=== PATIENT | female | born 1985 | race Two or more races ===

== ENCOUNTER 2018-03-03 20:24 | Emergency (ER) | payer OTHER ==
--- NOTE | 2018-03-03 20:36 | ED Physician Documentation ---
PD HPI ABD PAIN - Stated complaint Stated Complaint: ABD PX/BACK PX - Chief complaint Chief Complaint: Abd Pain - History obtained from History obtained from: Patient - History of Present Illness Timing - onset: Enter time (09:00), Yesterday Timing - details: Gradual onset Pain level now: 4 Quality: Pain Location: Epigastric, LUQ Radiation: Other (no radiation) Improved by: Other (nothing) Worsened by: Other (no exacerbating factors) Associated symptoms: Nausea. No: Fever, Vomiting, Diarrhea, Constipation Similar symptoms before: Has not had sx before Recently seen: Not recently seen Review of Systems Constitutional: reports: Reviewed and negative Cardiac: reports: Reviewed and negative Respiratory: reports: Reviewed and negative GI: reports: Abdominal Pain, Nausea. denies: Vomiting : denies: Dysuria, Frequency Musculoskeletal: reports: Reviewed and negative PD PAST MEDICAL HISTORY - Past Medical History Past Medical History: Yes - Past Surgical History Past Surgical History: Yes General: Cholecystectomy, Bowel surgery ([id number]) - Present Medications Home Medications: Ambulatory Orders Medication Instructions Recorded Confirmed Rizatriptan Benzoate [Maxalt] 10 mg PO DAILY PRN 03/03/18 03/03/18 traZODone [Desyrel] 50 mg PO ONCE 03/03/18 03/03/18 Hydrocodone/Acetaminophen 1 - 2 each PO Q6HR PRN #14 tablet 03/04/18 [Hydrocodon-Acetaminophen 5-325] Ondansetron Odt [Zofran] 4 mg TL Q6H PRN #10 tablet 03/04/18 - Allergies Allergies/Adverse Reactions: Allergies Allergy/AdvReac Type Severity Reaction Status Date / Time No Known Drug Allergies Allergy Verified 03/03/18 20:29 PD ED PE NORMAL - Vitals Vital signs reviewed: Yes - General General: Alert and oriented X 3, No acute distress, Well developed/nourished - HEENT HEENT: Moist mucous membranes - Cardiac Cardiac: RRR, No murmur - Respiratory Respiratory: No respiratory distress, Clear bilaterally - Abdomen Abdomen: Soft, Non distended, Other (mild tenderness epigastrium, LUQ) - Back Back: No CVA TTP - Extremities Extremities: No edema Results - Vitals Vitals: Oxygen O2 Source Room air - Labs Labs: Laboratory Tests 03/03/18 03/03/18 03/03/18 20:50 20:50 22:06 WBC 5.1 RBC 4.41 Hgb 12.0 Hct 36.3 L MCV 82.3 MCH 27.2 MCHC 33.1 RDW 13.4 Plt Count 211 MPV 8.3 Neut # (Auto) 2.0 Lymph # (Auto) 2.5 [place] # (Auto) 0.5 Eos # (Auto) 0.0 Baso # (Auto) 0.0 Absolute Nucleated RBC 0.01 Nucleated RBC % 0.1 Sodium 141 Potassium 3.6 Chloride 106 Carbon Dioxide 26 Anion Gap 9.0 BUN 11 Creatinine 0.8 Estimated GFR (MDRD) 84 L Glucose 85 Calcium 8.9 Total Bilirubin 0.6 AST 22 ALT 16 Alkaline Phosphatase 77 Total Protein 7.5 Albumin 4.2 Globulin 3.3 Albumin/Globulin Ratio 1.3 Lipase 21 L Urine Color YELLOW Urine Clarity CLEAR Urine pH 6.0 Ur Specific [place] 1.020 Urine Protein NEGATIVE Urine Glucose (UA) NEGATIVE Urine Ketones NEGATIVE Urine Occult Blood NEGATIVE Urine Nitrite NEGATIVE Urine Bilirubin NEGATIVE Urine Urobilinogen 0.2 (NORMAL) Ur Leukocyte Esterase NEGATIVE Ur Microscopic Review NOT INDICATED Urine Culture Comments NOT INDICATED Urine HCG, Qual 03/03/18 22:06 WBC RBC Hgb Hct MCV MCH MCHC RDW Plt Count MPV Neut # (Auto) Lymph # (Auto) [place] # (Auto) Eos # (Auto) Baso # (Auto) Absolute Nucleated RBC Nucleated RBC % Sodium Potassium Chloride Carbon Dioxide Anion Gap BUN Creatinine Estimated GFR (MDRD) Glucose Calcium Total Bilirubin AST ALT Alkaline Phosphatase Total Protein Albumin Globulin Albumin/Globulin Ratio Lipase Urine Color Urine Clarity Urine pH Ur Specific [place] 1.020 Urine Protein Urine Glucose (UA) Urine Ketones Urine Occult Blood Urine Nitrite Urine Bilirubin Urine Urobilinogen Ur Leukocyte Esterase Ur Microscopic Review Urine Culture Comments Urine HCG, Qual NEGATIVE - Rads (name of study) CT A/P Radiology: Prelim report reviewed, See rad report PD MEDICAL DECISION MAKING - ED course Complexity details: reviewed results, re-evaluated patient, considered differential, d/w patient Departure - Departure Disposition: 01 Home, Self Care Clinical Impression: Abdominal pain Condition: Good Instructions: ED Abdominal Pain Unkn Cause Follow-Up: Amarjit Ramierz ARNP [Primary Care Provider] - (Call to arrange for next available appointment) Prescriptions: Hydrocodone/Acetaminophen [Hydrocodon-Acetaminophen 5-325] 1 - 2 each PO Q6HR PRN #14 tablet PRN Reason: Pain Ondansetron Odt [Zofran] 4 mg TL Q6H PRN #10 tablet PRN Reason: Nausea / Vomiting Comments: Your tests tonight are reassuring and don't reveal the cause of your pain. Incidentally noted is that it appears that some of the contrast you drank leaked into an area of your intestinal tract that should have been sealed off by the gastric bypass surgery. You should follow up with your doctor to discuss this result and whether other tests or treatment is needed to address this finding. Discharge Date/Time: 03/04/18 01:24 PDT
[2018-03-03] MEDS ORDERED: ONDANSETRON 4 MG/2 ML VIAL IVP STA (20:57)
[2018-03-03] MEDS ORDERED: MORPHINE 2 MG/ML CARPUJECT IVP STA (20:57)
[2018-03-03] MEDS ORDERED: SODIUM CHLORIDE 0.9% 1,000 ML IV STA (20:58)
[2018-03-03] MEDS ORDERED: IOVERSOL 320 50 ML VIAL ONE (21:07)
[2018-03-03] MEDS ORDERED: IOPAMIDOL-300 100 ML VIAL ONE (21:07)
[2018-03-03 21:09] LABS: BASOPHILS % (AUTO) 0.2 %; EOSINOPHILS % (AUTO) 0.4 %; LYMPHOCYTES # (AUTO) 2.5 10^3/uL (1.5-3.5); LYMPHOCYTES % (AUTO) 49.4 %; MEAN CORPUSCULAR HEMOGLOBIN 27.2 pg (27.0-31.0); MEAN CORPUSCULAR HGB CONC 33.1 g/dL (32.0-36.0); MEAN CORPUSCULAR VOLUME 82.3 fL (81.0-99.0); MEAN PLATELET VOLUME 8.3 fL (7.9-10.8); MONOCYTES # (AUTO) 0.5 10^3/uL (0.0-1.0); MONOCYTES % (AUTO) 10.2 %; NEUTROPHILS % (AUTO) 39.8 %; PLT - PLATELET COUNT 211 10^3/uL (130-450); RED BLOOD COUNT 4.41 10^6/uL (4.20-5.40); RED CELL DISTRIBUTION WIDTH 13.4 % (12.0-15.0); WHITE BLOOD COUNT 5.1 x10^3/uL (4.8-10.8)
[2018-03-03] MEDS ORDERED: IOVERSOL 320 50 ML VIAL PO ONE (21:24)
[2018-03-03 21:28] LABS: ALBUMIN 4.2 g/dL (3.2-5.5); ALBUMIN/GLOBULIN RATIO 1.3 (1.0-2.2); BILIRUBIN,TOTAL 0.6 mg/dL (0.2-1.0); CALCIUM 8.9 mg/dL (8.5-10.3); CREATININE 0.8 mg/dL (0.4-1.0); TOTAL PROTEIN 7.5 g/dL (6.7-8.2)
[2018-03-03 22:31] LABS: BILIRUBIN,URINE NEGATIVE (NEGATIVE); GLUCOSE, URINE (UA) NEGATIVE (NEGATIVE); KETONES,URINE (UA) NEGATIVE (NEGATIVE); LEUKOCYTE ESTERASE, URINE NEGATIVE (NEGATIVE); NITRITE,URINE NEGATIVE (NEGATIVE); OCCULT BLOOD,URINE NEGATIVE (NEGATIVE); PROTEIN,URINE NEGATIVE (NEGATIVE); UROBILINOGEN,URINE 0.2 (NORMAL) E.U./dL (NORMAL)
[2018-03-03 22:34] LABS: CLARITY,URINE CLEAR (CLEAR)
[2018-03-03 22:35] LABS: HCG UR QUAL NEGATIVE
[2018-03-03] MEDS ORDERED: IOPAMIDOL-300 100 ML VIAL IVP ONE (22:59)
--- NOTE | 2018-03-03 23:32 | CT Report ---
Reason: abd. pain Procedure Date: 03/03/2018 Accession Number: [id number] / [id number] Procedure: CT - Abdomen/Pelvis W/ CPT Code: FULL RESULT: EXAM: CT ABDOMEN AND PELVIS EXAM DATE: 03/03/2018 11:08 PM. CLINICAL HISTORY: Abd. pain. COMPARISONS: None. TECHNIQUE: Routine helical CT imaging was performed through the abdomen and pelvis. IV contrast: ISOVUE 300 100mL. Enteric contrast: No. Reconstructions: Coronal and sagittal. In accordance with CT protocol optimization, one or more of the following dose reduction techniques were utilized for this exam: automated exposure control, adjustment of mA and/or KV based on patient size, or use of iterative reconstructive technique. FINDINGS: Lung Bases: Unremarkable. Liver: Normal. No masses. Gallbladder/Bile Ducts: The gallbladder is surgically absent. Spleen: Normal. Pancreas: Mild pancreatic atrophy. No acute abnormalities are seen. Adrenal Glands: Normal. Kidneys: Normal. No masses or hydronephrosis. Peritoneal Cavity/Bowel: There are gastric surgical clips. This may be from gastric bypass. There is positive oral contrast within the excluded stomach. No evidence of small bowel obstruction. No acute colonic abnormalities are seen. The appendix is well visualized and normal. Pelvic Organs: Normal. The bladder and visualized pelvic organs are within normal limits. Vasculature: No aneurysms or other significant abnormality. Bones: No significant abnormality. Other: None. IMPRESSION: 1. 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 There is oral contrast within the excluded stomach, indicative of a staple line patency. Clinical correlation recommended. No acute gastric or small bowel abnormalities are seen. 2. No evidence of bowel obstruction or appendicitis. 3. No acute solid abdominal organ abnormalities are seen. [facility]
[2018-03-04] MEDS ORDERED: MORPHINE 2 MG/ML CARPUJECT IVP STA (00:38)
[2018-03-04 01:23] VITALS: BP 134/85
== END 2018-03-04 01:24 | disposition home or self-care (01) ==
LOC: ED 20:24
DX: R10.13 Epigastric pain (principal); R10.12 Left upper quadrant pain; Z98.0 Intestinal bypass and anastomosis status
CPT/HCPCS: 36415; 74177; 80053; 81003; 81025; 83690; 85025; 96361; 96374; 96376; 99284; Q9967; 81001; 87086